=== PATIENT | female | born 1970 | race African-American/Black ===

== ENCOUNTER 2016-02-16 22:54 | Emergency (ER) | payer MEDICAID ==
[2016-02-16 23:12] VITALS: TEMP 98.9; BMI 36.8
--- NOTE | 2016-02-17 00:37 | EDPRACDOC ---
- General Information Chief Complaint: Flu-Like Symptoms Stated Complaint: COUGH, N/V/D Time Seen by Provider: 02/16/16 23:29 Information Source: Patient Home Medications: Home Medications Aripiprazole [Abilify] 15 mg PO DAILY 01/13/12 BuPROPion HCL [Wellbutrin] 150 mg PO DAILY 01/13/12 Dexlansoprazole [Dexilant] 60 mg PO DAILY PRN 01/13/12 Lisinopril [Prinivil,Zestril] 20 mg PO DAILY 01/13/12 Acetaminophen with Codeine [TYLENOL WITH CODEINE; [employer] with Codeine] 5 ml PO Q4-6H PRN #120 ml 02/08/16 Amoxicillin Trihydrate [Amoxicillin] 500 mg PO TID #30 tab 02/08/16 Apixaban [Eliquis] 5 mg PO BID 02/08/16 Benzonatate [Tessalon] 100 mg PO TID #20 per 02/08/16 Dicyclomine HCl 10 mg PO BID 02/08/16 Rosuvastatin [Crestor] 10 mg PO HS 02/08/16 Valacyclovir HCl [Valtrex] 500 mg PO DAILY 02/08/16 Benzonatate [Tessalon] 100 mg PO TID #20 per 02/17/16 Allergies/Adverse Reactions: Allergies Allergy/AdvReac Type Severity Reaction Status Date / Time No Known Allergies Allergy Verified 02/16/16 23:12 - History of Present Illness Onset: 2 weeks HPI: C/o dry coughing fits and hot sweats all night, diarrhea x 2weeks. Current Symptoms: Reports: Cough Shortness of Breath: None Cough: Reports: Non-productive Ear Symptoms: Reports: None Fever Severity/Quality: Reports: subjective Oral Intake: Decreased Urinary Output: Normal Relevant History of: Asthma Associated Signs & Symptoms:: Reports: Cough, Headache, Nausea ED Past Medical History - History Reviewed Yes Nurses notes reviewed and agree except as marked - Patient Medical History Neurological History: Reports: Cerebrovascular Accident (mild) Cardiac History: Reports: Atrial Fibrillation, Hypertension, Hypercholesterolemia GI/ History: Reports: Gastroesophageal Reflux Psychological History: Denies: Depression Systemic History: Reports: Diabetes (borderline) - Social Medical History Smoking Status: Never smoker EDM Review of Systems - Review of Systems ROS Negative Except as Marked: Yes All systems reviewed and were negative except as marked Respiratory: Cough Gastrointestinal: Pain Neurological: Headache - Physical Exam Constitutional: No apparent distress, Alert Oriented to: Time, Person, Place Last recorded Vital Signs: Last Vital Signs Temp 98.9 F 02/16/16 23:07 Pulse 104 02/16/16 23:40 Resp 20 02/16/16 23:40 BP 162/70 02/16/16 23:40 Pulse Ox 97 02/16/16 23:40 Oxygen Pulse Oxygen Saturation 97 O2 Device Room Air Oxygen Flow Rate Fraction of Inspired Oxygen ( FIO2) - HEENT Head: Normal Eye Exam: negative: Conjunctival Injection, Scleral Icterus Oropharynx: negative: Drooling TMJ: Normal Nose: No Symptoms Reported Neck: Normal - Respiratory/Cardiovascular Respiratory: Normal - CTA Cardiovascular: Normal - Musculoskeletal Back: Normal Extremities: Normal - Integumentary Skin: Normal - Neurologic Mood Description: Normal Thought: Coherent - Diagnostic Imaging Chest Image interpreted by: Radiologist EXAM: CHEST 2 VIEW COMPARISON: Chest radiograph performed 05/02/2009 FINDINGS: The lungs are well-aerated. Mild peribronchial thickening is noted. There is no evidence of focal opacification, pleural effusion or pneumothorax. The heart is normal in size; the mediastinal contour is within normal limits. No acute osseous abnormalities are seen. IMPRESSION: Mild peribronchial thickening noted. Lungs otherwise clear. Electronically Signed By: Ezra Sahu M.D. On: 02/17/2016 01:25 - Additional Information Pt still taking amoxicillin. cheif complaint is cough at night that wont let her sleep. Decision Time to Discharge: 03:03 - Departure Disposition: Home Condition: Stable Final Diagnosis: Cough Education/Counseling Given To: Patient Education/Counseling Given Regarding: Diagnosis, Treatment, Prognosis, Follow Up Referrals: Dennis Langston MD [Primary Care Provider] - One Week Prescriptions: Benzonatate [Tessalon] 100 mg PO TID #20 per Additional Instructions: Follow up with primary care for cough. Return to ED for any new or worsening symptoms.
--- NOTE | 2016-02-17 01:28 | DIRPT ---
CLINICAL DATA: Acute onset of shortness of breath. Dry hacking cough, fever, diaphoresis, diarrhea, nausea and vomiting. Initial encounter. EXAM: CHEST 2 VIEW COMPARISON: Chest radiograph performed 05/02/2009 FINDINGS: The lungs are well-aerated. Mild peribronchial thickening is noted. There is no evidence of focal opacification, pleural effusion or pneumothorax. The heart is normal in size; the mediastinal contour is within normal limits. No acute osseous abnormalities are seen. IMPRESSION: Mild peribronchial thickening noted. Lungs otherwise clear. Electronically Signed By: Ezra Sahu M.D. On: 02/17/2016 01:25
[2016-02-17 03:07] VITALS: BP 149/68; PULSE 95
== END 2016-02-17 03:10 | disposition home or self-care (01) ==
LOC: ED 22:54
DX: R05 Cough (principal)
CPT/HCPCS: 71020; 99284